=== PATIENT | female | born 1990 | race Caucasian/White ===

== ENCOUNTER 2016-10-01 17:25 | Emergency (ER) | payer OTHER ==
[~2016-10-01] VITALS: Ht 157.5 cm; Wt 55.0 kg
[2016-10-01 23:26] VITALS: BP 120/66
== END 2016-10-01 23:30 | disposition home or self-care (01) ==
LOC: ER 17:45
DX: S20.219A Contusion of unspecified front wall of thorax, initial encounter (principal); W22.03XA Walked into furniture, initial encounter; Y93.89 Activity, other specified; Y92.89 Other specified places as the place of occurrence of the external cause; Y99.8 Other external cause status
CPT/HCPCS: 71111; 76705; 81025; 99284